=== PATIENT | male | born 1995 | race Hispanic/Latino ===

== ENCOUNTER 2020-04-03 11:07 | Emergency (ER) | payer OTHER ==
[~2020-04-03] VITALS: Ht 162.6 cm; Wt 68.0 kg
[2020-04-03 11:15] VITALS: BP 123/67
--- NOTE | 2020-04-03 11:15 | NUR ---
ARRIVAL PT STATES THAT HE HAS CHRONIC DIARRHEA AND TAKES A STOOL SOFTNER FOR THIS. HAD THE BLEEDING EPISODE 2 MONTHS AGO AFTER A BM, WAS TALKING TO FRIEND ON THE PHONE WHILE TRAVELING YESTERDAY AND WAS TOLD HE SHOULD GO GET IT CHECKED OUT. PT IS TRAVELING FROM [facility] TO [place].
--- NOTE | 2020-04-03 12:26 | ER.PDOC ---
General Chief Complaint: General Complaint Stated Complaint: CONSTIPATION TRAVEL OUT OF US: No Time seen by MD: 12:19 Source: patient Exam Limitations: no limitations History of Present Illness Initial Comments Patient had constipation and experienced blood in in stool 2 Months ago. Since then, he has not had anymore constipation or blood in stool. He told a friend and the friend advised him to come here to be checked. He has no complaints at this time. Severity: mild Associated Symptoms: denies symptoms Allergies: Coded Allergies: No Known Drug Allergies (Verified Allergy, Unknown, 04/03/20) Past Medical History Medical History: other Surgical History: no surgical history Social History Alcohol Use: none Drug Use: marijuana Review of Systems Constitutional: no symptoms reported Respiratory: no symptoms reported Cardiovascular: no symptoms reported Gastrointestinal: see HPI Genitourinary: no symptoms reported All Other Systems: Reviewed and Negative Physical Exam General Appearance: No Apparent Distress, WD/WN Neck: Non-Tender, Full Range of Motion, Supple, Normal Inspection Respiratory: chest non-tender, lungs clear, normal breath sounds, no respiratory distress CVS: reg rate & rhythm, no murmur, no gallop, pulses nml, nml capillary refill Gastrointestinal: Normal Bowel Sounds, No Organomegaly, No Pulsatile Mass, Non Tender Rectal: Normal Exam Extremities: Normal Range of Motion, Non-Tender, Normal Inspection 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 Skin: Normal Color Results/Orders Results/Orders Vital Signs Date Time Temp Pulse Resp B/P (MAP) Pulse Ox O2 Delivery O2 Flow Rate FiO2 04/03/20 11:15 98.2 97 16 123/67 (85) 100 Room Air 04/03/20 11:15 98.2 97 16 04/03/20 11:15 98.2 97 18 100 Departure Time of Disposition: 12:23 Disposition: 01 HOME, SELF-CARE Impression: Primary Impression: Bleeding hemorrhoid Condition: Stable Referrals: PCP,UNKNOWN (PCP) PRIMARY CARE PROVIDER Additional Instructions: Avoid constipation by eating lots of vegetables and fruits Take Metamucil OTC as directed F/U with your PCP in 2-3 days Return to ED if any concerns Duration or Time Spent with Pa: 10 min DOMINIQUE DURHAM MD Apr 03, 2020 12:26
== END 2020-04-03 12:19 | disposition home or self-care (01) ==
LOC: ER 11:07
DX: K64.9 Unspecified hemorrhoids (principal); F12.90 Cannabis use, unspecified, uncomplicated
CPT/HCPCS: 99282